=== PATIENT | male | born 1940 | race Caucasian/White ===

== ENCOUNTER 2018-04-21 15:10 | Emergency (ER) | payer MEDICARE, SELFPAY ==
[2018-04-21 15:13] VITALS: BP 108/66; PULSE 60; RESP 18; TEMP 37.1; O2SAT 99; BMI 22.3
--- NOTE | 2018-04-21 15:47 | ED.VISSUMM ---
- ER Visit Summary Date of Service: 04/21/18 Chief Complaint: Combative episode History of Present Illness: The patient is a 77 M with a history of dementia who resides at a custodial facility. He is unable to provide history. According to the ED nurse, he was combative today at the nursing facility. They called the physician for a Haldol order, but the patient was referred to the emergency department. The patient has no complaints. Physical Examination: Afebrile and vital signs unremarkable. Patient is alert. Oriented to person only. Moves all extremities. Cranial nerves grossly intact. Skin appears normal grossly. Moist mucous membranes. Heart regular rate and rhythm. Lungs clear. Abdomen soft. Test Results: Labs, urinalysis, tox screen, alcohol level, EKG, CT brain pending. Emergency Department Course and Treatment: EKG showed sinus rhythm at a rate of 59. CT brain showed moderate involutional changes. Hemoglobin 12.9 and platelets 143. Sodium 146 and chloride 110. Hepatic panel unremarkable. Urinalysis unremarkable. Patient had some mild restlessness and very mild agitation here. He was not combative. He did receive a total of 2 mg of Haldol IV. He was resting and sleeping afterwards. He was much more calm and cooperative. I spoke with the patient's guardian. His psychiatrist wanted him admitted for further care. The guardian does not want him admitted as he did not do well during a prior admission. She would like a as needed order for Haldol at his nursing facility. The patient's psychiatrist does not want this, according to the guardian. I did speak with Dr. Rucker. He feels comfortable ordering Haldol as needed at the nursing facility. He cannot place a PRN standing order per SNF policy, but he can order single doses. He would like the patient to return to the facility and feels comfortable caring for the patient there. Patient's guardian will be discontinuing care with the patient's psychiatrist, and she would also like the patient to return to the nursing facility. Patient's workup is unremarkable. No further issues. I believe he is safe for discharge. Treatment Plan: As above Disposition: Discharged Impression: 1. Behavioral disturbance This note was generated with [employer] software. It may contain incorrect words, spelling, and punctuation that were not noted in review of the chart prior to signing ED Disposition - Plan for ED Patient: Disposition: Long-Term Facility Chief Complaint: Alt LOC Instructions: ED Dementia Alzheimer Referrals: Mehul Rucker [Primary Care Provider] -
[2018-04-21 16:17] LABS: Absolute Lymphocyte Count 1.29 X10^3/ul (0.83-4.51); Absolute Neutrophil Count 2.8 X10^3/uL (2.0-7.7); Basophil# 0.02 X10^3/uL; Basophil% 0.4 % (0-1); Eosinophil# 0.04 X10^3/uL; Eosinophils% 0.8 % (0-5); Hematocrit 38.6 % (40-54); Hemoglobin 12.9 g/dl (13.0-16.5); Lymphocyte # 1.29 X10^3/ul (4.0); Lymphocyte % 27.1 % (19-41); Mean Corp Hgb Conc 33.4 g/gl (32-36); Mean Corpuscular Hgb 31.9 pg (27.0-32.0); Mean Corpuscular Volume 95.5 fL (80-94); Monocyte# 0.63 X10^3/uL; Monocyte% 13.2 % (0-10); Neutrophil # 2.77 X10^3/uL (2.7-7.7); Neutrophil % 58.3 % (47-70); POSITIVE COUNT NO; POSITIVE DIFFERENTIAL NO; POSITIVE MORPHOLOGY NO; Platelet Count 143 K/mm3 (150-450); RBC Distribution Width CV 12.1 % (11.6-14.6); RBC Distribution Width SD 42.2 fl (35.1-43.9); Red Blood Count 4.04 M/mm3 (4.6-6.2); White Blood Count 4.8 K/mm3 (4.4-11.0)
[2018-04-21 16:23] LABS: AST(SGOT) 16 U/L (15-37); Alanine Aminotransfer ALT/SGPT 23 U/L (16-61); Albumin, Serum 3.3 g/dL (3.2-5.0); Alkaline Phosphatase 50 U/L (45-117); Anion Gap 8 (5-15); BUN 18 mg/dL (7-18); Calcium,Total 8.2 mg/dL (8.5-10.1); Chloride 110 mmol/L (98-107); Creatinine, Serum 1.06 mg/dL (0.70-1.30); EST Glomerular Filtration Rate 72 mL/min (>60); Est Glom Filt Rate - Afr Amer 88 mL/min (>60); Estimated Creatinine Clearance 50.22 ml/min; Globulin 3.2 g/dL (2.2-4.2); Glucose 83 mg/dL (74-106); Potassium 4.2 mmol/L (3.5-5.1); Protein, Total 6.5 g/dL (6.4-8.2); Sodium Level 146 mmol/L (136-145)
[2018-04-21] MEDS: Haloperidol Lactate 5 MG/ML Vial 1 MG IV ×2 (16:24→18:24)
[2018-04-21 17:50] VITALS: RESP 16
[2018-04-21 17:51] LABS: Bacteria 0 SEEN /hpf (None Seen); Mucous, Urine 0 SEEN /hpf (<or=2+); Red Blood Cells-Urine 0 SEEN /hpf (0-5); Squamous Epithelial Cells - UA 0 SEEN /hpf (0-5); White Blood Cells 0 SEEN /hpf (0-5)
--- NOTE | 2018-04-21 17:56 | ED.RN ---
[facility] PT IS HERE
[2018-04-21 18:05] LABS: Color, Urine Yellow (Yellow); Glucose, Dipstick Normal (Normal); Ketone-Dipstick 5 mg/dl (Negative); Leukocyte Esterase-Dipstick Negative /ul (Negative); Nitrite-Dipstick Negative (Negative); Occult Blood-Urine Negative /ul (Negative); Protein-Dipstick Negative (Negative); Specific Gravity, Urine 1.015 (1.002-1.030); Urine Bilirubin Dipstick Negative (Negative); Urine Clarity Clear (Clear); Urine Urobilinogen Normal (Normal)
[2018-04-21 18:41] LABS: Amphetamine Urine VISTA NEGATIVE (<1000 ng/mL); Barbiturate Urine VISTA NEGATIVE (< 200 ng/mL); Benzodiazepine Urine VISTA NEGATIVE (< 200 ng/mL); Cocaine Urine VISTA NEGATIVE (< 300 ng/mL); Ecstacy Urine VISTA NEGATIVE (< 500 ng/mL); Methadone Urine VISTA NEGATIVE (< 300 ng/mL); PCP Urine VISTA NEGATIVE (< 25 ng/mL); THC Urine VISTA NEGATIVE (< 50 ng/mL); Vista UDS pH Range 6
--- NOTE | 2018-04-21 19:47 | ED.DEP ---
ED Disposition - Plan for ED Patient: Chief Complaint: Alt LOC Instructions: ED Dementia Alzheimer Referrals: Mehul Rucker [Primary Care Provider] -
[2018-04-21 19:50] VITALS: BP 150/94; PULSE 71; RESP 18; O2SAT 100
--- NOTE | 2018-04-21 19:51 | NURSING ---
REPORT GIVEN TO ROCHELLE AT [facility] WILL BE HERE IN 30 MINUTES. [facility] HAS BEEN AT THE BEDSIDE FOR THE LAST 40 MINUTES ASSISTING PATIENT TO EAT AND MAINTAINING PATIENT'S SAFETY.
[2018-04-21 20:20] VITALS: RESP 12
== END 2018-04-21 20:52 | disposition skilled nursing facility (03) ==
PROVIDERS: Emergency Provider Emergency Medicine; Family Provider Family Medicine; PCP Family Medicine
DX: F03.91 Unspecified dementia, unspecified severity, with behavioral disturbance (principal); E78.00 Pure hypercholesterolemia, unspecified; N40.0 Benign prostatic hyperplasia without lower urinary tract symptoms; G47.00 Insomnia, unspecified; Z79.899 Other long term (current) drug therapy
CPT/HCPCS: 70450; 80053; 80307; 80320; 81001; 85025; 93005; 96374; 96376; 99285; P9612; A4216; G0480